=== PATIENT | female | born 1955 | race Caucasian/White ===

== ENCOUNTER 2018-11-16 15:58 | Emergency (ER) | payer OTHER ==
[2018-11-16 16:11] LABS: ADD MAN DIFF? NO
[2018-11-16 16:21] LABS: WHITE BLOOD COUNT 11.1 10^3/ul (4.8-10.8)
[2018-11-16 16:21] LABS: BASOPHIL # 0.1 10^3/ul (0.0-0.1); BASOPHILS % 0.5 % (0.0-2.0); EOSINOPHILS # 0.3 10^3/ul (0.0-0.5); EOSINOPHILS % 2.7 % (0.0-7.0); HEMATOCRIT 38.6 % (37.0-47.0); HEMOGLOBIN 13.1 g/dl (12.0-16.0); LYMPHOCYTES # 4.2 10^3/ul (0.8-2.9); LYMPHOCYTES % 37.6 % (15.0-51.0); MEAN CORPUSCULAR HEMOGLOBIN 31.1 pg (29.0-33.0); MEAN CORPUSCULAR HGB CONC 33.9 g/dl (32.0-37.0); MEAN CORPUSCULAR VOLUME 91.7 fl (82.0-101.0); MONOCYTE # 0.7 10^3/ul (0.3-0.9); MONOCYTES % 6.7 % (0.0-11.0); NEUTROPHIL # 5.8 10^3/ul (1.6-7.5); PLATELET COUNT 327 10^3/UL (140-415); RED BLOOD COUNT 4.21 10^6/ul (4.20-5.40); RED CELL DISTRIBUTION WIDTH 12.3 % (11.5-14.5)
[2018-11-16] MEDS: ALTEPLASE (tPA) 1 MG/ML BOLUS SYG IV* (16:35)
[2018-11-16 16:36] LABS: INR 0.89; PARTIAL THROMBOPLASTIN TIME 30.5 Sec (23.0-35.0); PROTIME 12.1 Sec (11.9-14.9); PT RATIO 0.9
[2018-11-16] MEDS: ALTEPLASE 100 MG INJ IV* (16:36)
[2018-11-16 16:46] LABS: ANION GAP 15 (5-13); BLOOD UREA NITROGEN 16 mg/dl (7-20); CALCIUM 9.3 mg/dl (8.4-10.2); CARBON DIOXIDE 25 mmol/L (21-31); CHLORIDE 101 mmol/L (97-110); CHOL/HDL RATIO 2.9 RATIO; CHOLESTEROL 137 mg/dl (100-200); CREATINE KINASE 66 IU/L (23-200); CREATININE 0.56 mg/dl (0.44-1.00); Estimated GFR > 60 mL/min (>60); GLUCOSE 155 mg/dl (70-220); HDL CHOLESTEROL 46 mg/dl (35-98); LDL CHOLESTEROL,CALCULATED 55 mg/dl; POTASSIUM 3.8 mmol/L (3.5-5.1); SODIUM 141 mmol/L (135-144); TRIGLYCERIDES 180 mg/dl (0-149)
[2018-11-16 16:47] LABS: HEMOGLOBIN A1C 6.5 % (0-5.9)
[2018-11-16 16:57] LABS: CK INDEX 1.5; CK-MB 0.98 ng/ml (0.0-2.4); TROPONIN-I < 0.012 ng/ml (0.000-0.120)
[2018-11-16 17:14] LABS: ETHANOL < 10.0 mg/dl (0-0)
[2018-11-16] MEDS: SOD CHLORIDE 0.9% 50 ML IV (17:17)
[2018-11-16] MEDS: ASPIRIN 325 MG TAB PO (17:32)
[2018-11-16] MEDS: SOD CHLORIDE 0.9% 100 ML (17:47)
[2018-11-16] MEDS: IOHEXOL 100 ML (17:47)
[2018-11-16 17:56] LABS: ADD UMIC YES; UR ASCORBIC ACID NEGATIVE (NEGATIVE); UR BACTERIA FEW /HPF (NONE SEEN); UR BILIRUBIN (Dip) NEGATIVE (NEGATIVE); UR BLOOD (Dip) NEGATIVE (NEGATIVE); UR CLARITY SLIGHTLY CLOUDY (CLEAR); UR COLOR YELLOW (YELLOW); UR GLUCOSE (Dip) NEGATIVE (NEGATIVE); UR KETONES (Dip) NEGATIVE (NEGATIVE); UR LEUKOCYTE ESTERASE (Dip) 1+ Leu/ul (NEGATIVE); UR NITRITE (Dip) NEGATIVE (NEGATIVE); UR RBC 0 /HPF (0-5); UR SPECIFIC GRAVITY (Dip) 1.006 (1.003-1.030); UR TOTAL PROTEIN (Dip) 1+ mg/dl (NEGATIVE); UR UROBILINOGEN (Dip) NEGATIVE (NEGATIVE); UR WBC 32 /HPF (0-5)
[2018-11-16 18:12] LABS: AMPHETAMINE/METHAMPHETAMINE Negative (NEGATIVE); BARBITURATES Negative (NEGATIVE); BENZODIAZEPINES Negative (NEGATIVE); CANNABINOIDS Negative (NEGATIVE); COCAINE Negative (NEGATIVE); OPIATES Negative (NEGATIVE)
== END 2018-11-16 20:05 | disposition short-term general hospital (02) ==
LOC: E/R 20:05
DX: I63.9 Cerebral infarction, unspecified (principal); I10 Essential (primary) hypertension; E11.9 Type 2 diabetes mellitus without complications; Z79.84 Long term (current) use of oral hypoglycemic drugs
CPT/HCPCS: 37195; 70450; 70496; 70498; 71045; 80048; 80061; 80307; 81001; 82550; 82553; 82962; 83036; 84484; 85025; 85610; 85730; 93005; 99291-25